=== PATIENT | male | born 1985 | race Caucasian/White ===

== ENCOUNTER 2018-07-04 10:40 | Emergency (ER) | payer OTHER, BC ==
[2018-07-04] MEDS: ADACEL/BOOSTRIX VACCINE (DIPHTH/PERTUSS/ACELL/TETANUS)0.5ML SYR (90715) IM (11:19)
[2018-07-04] MEDS: LIDOCAINE W/EPINEPHRINE 1% 20ML VIAL SC (11:19)
== END 2018-07-04 12:04 | disposition home or self-care (01) ==
LOC: M ED 10:40
DX: S61.512A Laceration without foreign body of left wrist, initial encounter (principal); W26.8XXA Contact with other sharp object(s), not elsewhere classified, initial encounter; Y92.89 Other specified places as the place of occurrence of the external cause; Y99.0 Civilian activity done for income or pay; I10 Essential (primary) hypertension
CPT/HCPCS: 90715